=== PATIENT | male | born 1970 | race Caucasian/White ===

== ENCOUNTER → 2017-09-14 | Outpatient (CLI) | payer OTHER ==
[~2017-09-14] MED LIST: ACCUPRIL5 MG PO; LEVOFLOXACIN500 MG PO; PERCOCET 325 MG1 TA7 PO
== END ==
LOC: CARD 09:11
DX: I10 Essential (primary) hypertension (principal); Q79.6 Ehlers-Danlos syndromes

== ENCOUNTER 2019-03-21 19:05 | Emergency (ER) | payer OTHER ==
[~2019-03-21] VITALS: Ht 190.5 cm; Wt 99.8 kg
--- NOTE | ~2019-03-21 | EKG ---
[place], [place] ELECTROCARDIOGRAM REPORT NAME: SAMEER BRANNON UNIT #: [id number] ROOM: DOCTOR: EPIPHANY DRAFT REPORT BIRTHDATE: [birth year] [facility] Test Date: 2019-03-21 Test Time: 19:43:25 Pat Name: SAMEER BRANNON Department: ER Room: 3 Gender: M Dip Painter: EKG.ME : 1970 Requested By: DELGADO SORIANO Order Number: [id number] Reading MD: René Perez MD Measurements Intervals [place] Rate: 115 P: 52 MT: 159 QRS: -18 QRSD: 86 T: -1 QT: 303 QTc: 419 Interpretive Statements Sinus tachycardia Ventricular premature complex Probable left atrial enlargement Abnormal R-wave progression, late transition Electronically Signed On 03-22-2019 13:41:10 PDT by René Perez MD CM:EKGRPT:ELECTROCARDIOGRAM REPORT 42 1341 DELGADO HUBBARD EPIPHELISHA DRAFT REPORT DELGADO HUBBARD
[~2019-03-21 19:05] MED LIST changes: +ACCUPRIL10 MG PO; -ACCUPRIL5 MG PO
[2019-03-21 20:01] LABS: BASO % 0.2 % (0.0-1.0); EOS % 0.1 % (1.0-4.0); HEMATOCRIT 44.6 % (42.0-52.0); HEMOGLOBIN 15.4 g/dl (14.0-18.0); LYMPH # 0.7 10*3/uL (1.3-4.4); LYMPH % 3.4 % (27.0-41.0); MEAN CELL VOLUME 88.3 fl (80.0-94.0); MEAN CORPUSCULAR HGB 30.5 pg (27.0-31.0); MEAN CORPUSCULAR HGB CONC 34.5 g/dl (33.0-37.0); MEAN PLATELET VOLUME 10.2 fl (9.6-12.3); MONO # 1.5 10*3/uL (0.1-1.0); MONO % 7.4 % (3.0-9.0); NEUT # 17.7 10*3/uL (2.3-7.9); NEUT % 88.2 % (47.0-73.0); PLATELET COUNT AUTOMATED 184 10*3/uL (130-400); RED BLOOD COUNT 5.05 10*6/uL (4.50-5.90); RED CELL DISTRI WIDTH 13.2 % (0-14.5)
[2019-03-21 20:16] LABS: ALBUMIN 3.5 gm/dl (3.1-4.5); ALKALINE PHOSPHATASE 113 U/L (45-117); BUN 22 mg/dl (7-24); CHLORIDE 101 mmol/L (98-107); CREATININE 1.48 mg/dL (0.70-1.30); LIPASE 365 U/L (73-393); POTASSIUM 3.5 mmol/L (3.5-5.1); SGOT/AST 45 IU/L (3-35); SGPT/ALT 47 U/L (12-78); SODIUM 136 mmol/L (136-145); TOTAL PROTEIN 8.2 gm/dL (6.4-8.2); TROPONIN I 0.016 ng/ml (<0.045)
[2019-03-21 20:27] LABS: ACT PARTIAL THROMBO TIME 27.1 SECONDS (20.0-32.1); INTERNATIONAL NORM RATIO 1.1 (2.0-3.5)
[2019-03-21 22:21] LABS: BILIRUBIN 2+ (NEGATIVE); BLOOD TRACE-INTACT (NEGATIVE); CLARITY SL CLOUDY (CLEAR); COLOR YELLOW (YELLOW); GLUCOSE NEGATIVE (NEGATIVE); KETONE 1+ (NEGATIVE); LEUKO ESTERASE NEGATIVE (NEGATIVE); NITRITE NEGATIVE (NEGATIVE); PH 5.5 (5.0-9.0)
[2019-03-22] MEDS ORDERED: CLINDAMYCIN HC300 MG PO (17:21)
[2019-03-23] MEDS ORDERED: PRAVASTATIN SOD20 MG PO (01:14)
[2019-03-23] MEDS ORDERED: TESTOSTERONE60 GM TD (01:15)
[2019-03-27] MEDS ORDERED: FLAGYL250 MG PO (14:45)
[2019-03-27] MEDS ORDERED: VANCO 1.51.5 GM/500 IV (14:45)
[2019-03-27] MEDS ORDERED: CIPRO IV400 MG/200 IV (14:45)
== END 2019-03-21 23:42 | disposition home or self-care (01) ==
LOC: ED 19:05
PROVIDERS: Physician Assistant
DX: D72.829 Elevated white blood cell count, unspecified (principal); A08.4 Viral intestinal infection, unspecified; N17.9 Acute kidney failure, unspecified; Z88.0 Allergy status to penicillin; Z79.899 Other long term (current) drug therapy

== ENCOUNTER 2020-06-16 17:03 | Emergency (ER) | payer BC ==
[~2020-06-16] VITALS: Wt 99.8 kg
[~2020-06-16 17:03] MED LIST changes: +CIPRO IV400 MG/200 IV; +CLINDAMYCIN HC300 MG PO; +FLAGYL250 MG PO; +PRAVASTATIN SOD20 MG PO; +TESTOSTERONE60 GM TD; +VANCO 1.51.5 GM/500 IV
== END 2020-06-16 18:59 | disposition home or self-care (01) ==
LOC: ED 17:03
DX: U07.1 COVID-19 (principal)